=== PATIENT | female | born 1995 | race Caucasian/White ===

== ENCOUNTER 2024-04-30 15:01 | Outpatient (CLI) | payer BC ==
[2024-04-30 15:44] VITALS: BP 135/85; PULSE 82; RESP 16; TEMP 98.2
--- NOTE | 2024-06-07 20:24 | P.MSEPDOC ---
Presenting Problems - Arrival Data Date of Arrival on Unit: 04/30/24 Time of Arrival on Unit: 15:01 Mode of Transport: Ambulatory - Complaint OB-Reason for Admission/Chief Complaint: Decreased Movement Medical History - Information : 1 Para: 0 Term: 0 : 0 Abortions: Spontaneous or Elective: 0 Number of Living Children: 0 - Gestational Age Gestational Age by DAINA (wks/days): 25 Weeks and 0 Days Review of Systems - Review of Systems Constitutional: No problems Breast: No problems ENT: No problems Cardiovascular: No problems Respiratory: No problems Gastrointestinal: No problems Genitourinary: No problems Musculoskeletal: No problems Neurological: No problems Skin: No problems Vital Signs - Temperature Temperature: 98.2 F Temperature Source: Temporal Artery Scan - Pulse Right Sitting Pulse Rate: 82 Pulse Assessment Method: Automatic Cuff - Respirations Respiratory Rate: 16 Oxygen Delivery Method: Room Air - Blood Pressure Right Arm Blood Pressure: 135/85 Blood Pressure Mean: 101 Blood Pressure Source: Automatic Cuff Medical Screen Scoring - Assessment - Baby A Baseline FHR: 140 Heart Rate - NICHD Category: Category I (Normal) NST: Reactive Physician Notification - Physician Notified Physician Notified Date: 04/30/24 Physician Notified Time: 15:27 Physician: Sharda Flynn New Order Received: Yes (d/c home) Maternal Triage Index - Urgent/Priority 2 Urgent Priority 2: Yes Provider Notified: Sharda Flynn Provider Notified Time: 15:27 Criteria Met for Priority 2: reassuring fht for gestation Disposition - Disposition OB Disposition: Discharge to home Discharge Date: 04/30/24 Discharge Time: 15:36 I agree with the RN Medical Screening Exam: Yes Case reviewed; plan agreed upon as documented in EMR&OBIX.: Yes Diagnosis: DECREASED MOVEMENTS, SECOND TRIMESTER, FETUS 1
== END 2024-04-30 15:36 | disposition home or self-care (01) ==
LOC: FBPOP 15:01
PROVIDERS: ATTEND Obstetrics & Gynecology Obstetrics
DX: O36.8121 Decreased fetal movements, second trimester, fetus 1 (principal); Z91.041 Radiographic dye allergy status; Z91.048 Other nonmedicinal substance allergy status; Z3A.25 25 weeks gestation of pregnancy
CPT/HCPCS: 99213

== ENCOUNTER 2024-05-08 17:10 | Emergency (ER) | payer BC, OTHER ==
[2024-05-08 17:18] VITALS: TEMP 98.5
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
[2024-05-08 17:52] LABS: Basophils # (A) 0.1 k/uL (0-0.2); Basophils % (A) 1 %; Eosinophils # (A) 0.1 k/uL (0-0.7); Eosinophils % (A) 1 %; HCT 38.2 % (34.0-46.0); HGB 12.1 gm/dL (11.4-16.0); Lymphocytes # (A) 2.5 k/uL (1.0-4.8); Lymphocytes % (A) 25 %; MCH 27.8 pg (25.0-35.0); MCHC 31.7 g/dL (31.0-37.0); MCV 87.8 fL (80.0-100.0); Mean Platelet Volume 8.2; Monocytes # (A) 0.4 k/uL (0-1.0); Monocytes % (A) 4 %; Neutrophils # (A) 6.8 k/uL (1.3-7.7); Neutrophils % (A) 68 %; Platelet Count 243 k/uL (150-450); RBC 4.35 m/uL (3.80-5.40); RDW 13.8 % (11.5-15.5)
[2024-05-08 18:03] LABS: ALT 11 U/L (4-34); AST 21 U/L (14-36); African American GFR (CKD) >90 (>60 ml/min/1.73 sqM); Albumin 3.5 g/dL (3.5-5.0); Alkaline Phosphatase 70 U/L (38-126); Anion Gap 9 mmol/L; Blood Urea Nitrogen 9 mg/dL (7-17); Calcium 8.9 mg/dL (8.4-10.2); Carbon Dioxide 21 mmol/L (22-30); Chloride 104 mmol/L (98-107); Glucose 76 mg/dL (74-99); Lipase 52 U/L (23-300); Non-African American GFR(CKD) >90 (>60 ml/min/1.73 sqM); Sodium 134 mmol/L (137-145); Total Bilirubin 0.3 mg/dL (0.2-1.3); Total Protein 6.1 g/dL (6.3-8.2)
[2024-05-08 18:07] LABS: Appearance,Urine Clear (Clear); Bacteria,Urine Few /hpf; Bilirubin,Urine Negative (Negative); Blood,Urine Negative (Negative); Color,Urine Light Yellow; Glucose,Urine (UA) Negative (Negative); Ketones,Urine Negative (Negative); Leukocyte Esterase,Urine Negative (Negative); Mucus,Urine Rare /hpf; Nitrite,Urine Negative (Negative); Protein,Urine 1+ (Negative); RBC,Urine 2 /hpf (0-5); Specific Gravity,Urine 1.018 (1.001-1.035); Squamous Epithelial Cell,Urine <1 /hpf (0-4); Urobilinogen,Urine <2.0 mg/dL (<2.0); WBC,Urine 3 /hpf (0-5)
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
[2024-05-08] MEDS: ACETAMINOPHEN TAB 500 MG TAB PO STA (19:42)
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
[2024-05-08 20:48] VITALS: BP 132/84; PULSE 91; RESP 18
== END 2024-05-08 20:47 | disposition other institution (70) ==
LOC: EC 17:10
DX: O26.93 Pregnancy related conditions, unspecified, third trimester (principal); V49.40XA Driver injured in collision with unspecified motor vehicles in traffic accident, initial encounter; Y92.410 Unspecified street and highway as the place of occurrence of the external cause; Z3A.26 26 weeks gestation of pregnancy
CPT/HCPCS: 36415; 76815; 80053; 81001; 83690; 85025; 99285

== ENCOUNTER 2024-05-08 20:52 | Outpatient (CLI) | payer BC ==
[2024-05-09 01:02] VITALS: BP 130/75; PULSE 80; RESP 16; TEMP 98.3
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
== END 2024-05-09 01:06 ==
LOC: FBPOP 20:52
PROVIDERS: ATTEND Obstetrics & Gynecology
DX: O26.92 Pregnancy related conditions, unspecified, second trimester (principal); Z3A.26 26 weeks gestation of pregnancy; Z91.048 Other nonmedicinal substance allergy status
CPT/HCPCS: 86850; 86900; 86901; 99213

== ENCOUNTER 2024-07-30 20:33 | Outpatient (CLI) | payer OTHER ==
[2024-07-30 21:53] VITALS: BP 138/76
--- NOTE | 2024-08-14 20:35 | P.MSEPDOC ---
Presenting Problems - Arrival Data Date of Arrival on Unit: 07/30/24 Time of Arrival on Unit: 20:33 Mode of Transport: Ambulatory - Complaint OB-Reason for Admission/Chief Complaint: Decreased Movement Medical History - Information : 1 Para: 0 Term: 0 : 0 Abortions: Spontaneous or Elective: 0 Number of Living Children: 0 - Gestational Age Gestational Age by DAINA (wks/days): 38 Weeks and 0 Days Review of Systems - Review of Systems Constitutional: No problems Breast: No problems ENT: No problems Cardiovascular: No problems Respiratory: No problems Gastrointestinal: No problems Genitourinary: No problems Musculoskeletal: No problems Neurological: No problems Skin: No problems Vital Signs - Blood Pressure Left Arm Blood Pressure: 138/76 Blood Pressure Mean: 96 Blood Pressure Source: Automatic Cuff Medical Screen Scoring - Assessment - Baby A Baseline FHR: 130 Heart Rate - NICHD Category: Category I (Normal) NST: Reactive Physician Notification - Physician Notified Physician Notified Date: 07/30/24 Physician Notified Time: 21:12 Physician: Sharda Flynn New Order Received: Yes - Notification Comment Comment: Spoke with Dr. Flynn. Pt of hers, o38 weeks 0 days. Presents with decreased FM for the past feew hours. Feelimg movement in triage now, NST reactive with cat 1 tones, no cx or pain. Initial BPs were 150s/70s-80s. Pressure is now 138/76, no symptoms. Order recieved to d/c home Maternal Triage Index - Maternal Triage Index Presenting for scheduled procedure w/no complaint: No - Stat/Priority 1 Stat Priority 1: No - Urgent/Priority 2 Urgent Priority 2: Yes Provider Notified: Sharda Flynn Provider Notified Time: 21:12 Criteria Met for Priority 2: Decreased movement Disposition - Disposition OB Disposition: Discharge to home Discharge Date: 07/30/24 Discharge Time: 21:15 I agree with the RN Medical Screening Exam: Yes Case reviewed; plan agreed upon as documented in EMR&OBIX.: Yes Diagnosis: RELATED CONDITIONS, UNSPECIFIED, THIRD TRIMESTER
== END 2024-07-30 21:15 | disposition home or self-care (01) ==
LOC: FBPOP 20:33
PROVIDERS: ATTEND Obstetrics & Gynecology Obstetrics
DX: O26.893 Other specified pregnancy related conditions, third trimester (principal); Z91.048 Other nonmedicinal substance allergy status; Z91.018 Allergy to other foods; Z3A.38 38 weeks gestation of pregnancy
CPT/HCPCS: 59025; 99213

== ENCOUNTER 2024-08-12 17:48 | Inpatient (IN) | payer OTHER ==
[2024-08-12 18:43] LABS: Basophils # (A) 0.04 10*3/uL (0.00-0.10); Basophils % (A) 0.3 %; Eosinophils # (A) 0.12 10*3/uL (0.04-0.35); HCT 36.9 % (37.2-46.3); HGB 12.8 g/dL (12.0-15.0); Lymphocytes # (A) 2.59 10*3/uL (0.90-5.00); Lymphocytes % (A) 21.9 %; MCHC 34.7 g/dL (32.0-37.0); MCV 86.6 fL (80.0-97.0); Mean Platelet Volume 11.9 fL (9.5-12.2); Monocytes % (A) 4.2 %; Neutrophils # (A) 8.56 10*3/uL (1.80-7.70); Neutrophils % (A) 72.3 %; Platelet Count 246 10*3/uL (140-440); RBC 4.26 10*6/uL (4.10-5.20); RDW 12.3 % (11.5-14.5); WBC 11.85 10*3/uL (4.50-10.00)
[2024-08-12 18:54] LABS: Uric Acid 4.2 mg/dL (3.7-7.4)
[2024-08-12 18:55] LABS: Creatinine,Urine Random 43.4 mg/dL; Protein/Creatinine Ratio,Urine 0.438
[2024-08-12 19:04] LABS: Appearance,Urine Clear (Clear); Bacteria,Urine Occasional /hpf; Bilirubin,Urine Negative (Negative); Blood,Urine Small (Negative); Color,Urine Colorless; Glucose,Urine (UA) Negative (Negative); Ketones,Urine Negative (Negative); Leukocyte Esterase,Urine Negative (Negative); Nitrite,Urine Negative (Negative); PH, Urine 6.5 (5.0-8.0); Protein,Urine Negative (Negative); RBC,Urine 1 /hpf (0-5); Specific Gravity,Urine 1.003 (1.001-1.035); Squamous Epithelial Cell,Urine 1 /hpf (0-4); Urobilinogen,Urine <2.0 mg/dL (<2.0); WBC,Urine 1 /hpf (0-5)
[2024-08-12] MEDS ORDERED: OXYTOCIN 10 UNIT/ML 1 ML VIAL IM PRN (19:30)
[2024-08-12] MEDS ORDERED: TRANEXAMIC 1,000 MG/100ML-NACL 1,000 MG in EMPTY BAG 1 BAG IV PRN (19:30)
[2024-08-12] MEDS ORDERED: TERBUTALINE 1 MG/ML VIAL SQ PRN (19:30)
[2024-08-12] MEDS ORDERED: miSOPROStoL 200 MCG TAB PO PRN (19:30)
[2024-08-12] MEDS ORDERED: METHYLERGONOVINE 0.2 MG/ML 1 ML AMP IM PRN (19:30)
[2024-08-12] MEDS ORDERED: CARBOPROST TROMETHAMINE 250 MCG/ML 1 ML AMP IM PRN (19:30)
[2024-08-12] MEDS ORDERED: miSOPROStoL 200 MCG TAB RECTAL PRN (19:30)
[2024-08-12] MEDS: DINOPROSTONE 10 MG INSERT.ER VAGINAL ONE (19:41)
[2024-08-12] MEDS ORDERED: LABETALOL 200 MG TAB PO STA (19:50)
[2024-08-12 20:16] LABS: African American GFR (CKD) >90 (>60 ml/min/1.73 sqM); Non-African American GFR(CKD) >90 (>60 ml/min/1.73 sqM)
[2024-08-12] MEDS: NALBUPHINE 10 MG/ML (10 ML MDV) IV PRN (21:08)
[2024-08-12] MEDS: LACTATED RINGERS 1,000 ML IV SCH (21:09)
[2024-08-12] MEDS: AMPICILLIN 2,000 MG in SODIUM CHLORIDE 0.9% 100 ML IVPB ONE (22:32)
[2024-08-13] MEDS ORDERED: ROPIVACAINE 5 MG/ML 30 ML VIAL ONE (01:29)
[2024-08-13] MEDS ORDERED: fentaNYL (PF) 50 MCG/ML 5 ML AMP ONE (01:29)
[2024-08-13] MEDS ORDERED: SODIUM CHLORIDE 0.9% 250 ML BAG ONE (01:29)
[2024-08-13] MEDS: AMPICILLIN 1,000 MG in SODIUM CHLORIDE 0.9% 50 ML IVPB SCH (02:37)
[2024-08-13] MEDS: OXYTOCIN 30 UNITS/500 ML NS 30 UNIT in SALINE 1 500ML.BAG IV SCH (04:48)
[2024-08-13] MEDS ORDERED: diphenhydrAMINE 50 MG CAP PO PRN (05:00)
[2024-08-13] MEDS ORDERED: HYDROCORTISONE 2.5% RECTAL CREAM 30 GM TUBE RECTAL PRN (05:00)
[2024-08-13] MEDS ORDERED: LANOLIN CREAM 1 GM TUBE TOPICAL PRN (05:00)
[2024-08-13] MEDS ORDERED: diphenhydrAMINE 25 MG CAP PO PRN (05:00)
[2024-08-13] MEDS ORDERED: SIMETHICONE 80 MG CHEWABLE PO PRN (05:00)
[2024-08-13] MEDS ORDERED: diphenhydrAMINE 50 MG/ML 1 ML VIAL IVP PRN ×2 (05:00)
[2024-08-13] MEDS ORDERED: ZOLPIDEM 5 MG TAB PO PRN (05:00)
--- NOTE | 2024-08-13 05:04 | P.PROBDLV ---
Vaginal Delivery Note - . Vaginal Delivery Note: Date of service 08/13/2024 Findings: Viable male infant delivered at 446, weight of 6 pounds 6.3 ounces 28-year-old 1 para 0 that presented to labor and delivery last evening with complaints of contractions that began around 1600. Patient was noted to have elevated blood pressures in OB triage therefore was admitted for Cervidil induction of labor. Blood pressures have been good through the labor process. Cervidil was removed through the night as patient was faraz and making cervical change. Patient progressed and requested an epidural. Epidural was placed with some difficulty by the anesthesia department. Patient got minimal relief from the epidural and made quick progress toward 8 cm. Patient soon had spontaneous rupture of membranes clear in nature, and progressed to complete dilation. Once completely dilated patient began pushing and through category 1 heart tones had a normal spontaneous vaginal delivery of a viable male at 446, weight of 6 pounds 6.3 ounces, Apgars of 8 and 9 at 1 and 5 minutes respectively. Spontaneous cry was noted at . After 2-minute delay the umbilical cord was doubly clamped and cut. Placenta was delivered spontaneously intact with a three-vessel cord being noted. Terminal meconium was appreciated at the time of delivery. On inspection of the patient's vaginal vault a second-degree midline laceration was appreciated. This was injected with lidocaine and repaired in the usual fashion with 3-0 Rapide. After closure hemostasis was appreciated. Uterus was noted to be firm and below the umbilicus. All counts were known to be correct x 2 at the end of the delivery. Patient and infant tolerated delivery well and are resting comfortably.
--- NOTE | 2024-08-13 05:05 | P.HPOB ---
History of Present Illness H&P Date: 08/12/24 Chief Complaint: IUP at 39 and 6/7 weeks, gestational hypertension 28-year-old 1 para 0 at 39-6/7 weeks that presents to labor and delivery with complaints of contractions beginning around 1600. Patient states contractions began irregular in nature at first and became more consistent. Patient then presented to labor and delivery. Patient denies vaginal bleeding or loss of fluid. On initial blood pressure in OB triage elevated blood pressure 160 over 90s was appreciated. Most recent 150s over 74. Patient denies signs or symptoms of preeclampsia. Patient has been receiving routine care which has been essentially uncomplicated. On blood work this patient has a blood type of O+, rubella status nonimmune, hepatitis B surface engine negative, HIV negative, RPR nonreactive, grew beta strep culture positive Review of Systems Constitutional: Denies chills, Denies fatigue, Denies fever Ears, nose, mouth and throat: Denies headache Cardiovascular: Reports leg edema Respiratory: Denies dyspnea Gastrointestinal: Denies constipation, Denies diarrhea, Denies nausea, Denies vomiting Genitourinary: Reports Past Medical History History of Any Multi-Drug Resistant Organisms: None Reported Smoking Status: Never smoker Medications and Allergies Home Medications Medication Instructions Recorded Confirmed Type Aspirin 81 mg PO DAILY 04/30/24 08/12/24 History Vit No.179/Iron/Folic 1 tab PO DAILY 04/30/24 08/12/24 History [ Tablet] Allergies Allergy/AdvReac Type Severity Reaction Status Date / Time adhesive Allergy Rash/Hives Verified 08/12/24 17:57 red dye Allergy Nausea & Verified 08/12/24 17:57 Vomiting Exam Osteopathic Statement: *. No significant issues noted on an osteopathic structural exam other than those noted in the History and Physical/Consult. Intake and Output 08/12/24 08/12/24 08/12/24 06:59 14:59 22:59 Other: Weight 144.242 kg Targeted physical exam is performed this date in general this is a well- nourished well-developed female in no acute distress, breathing is nonlabored, abdomen is noted to be obese and gravid, on cervical exam she is fingertip/70/-2 station vertex presentation. heart tones are noted to be category 1 and she is faraz irregularly. Results Result Diagrams: 08/12/24 18:31 08/12/24 18:31 Abnormal Lab Results - Last 24 Hours (Table) 08/12/24 08/12/24 Range/Units 18:26 18:31 WBC 11.85 H (4.50-10.00) 10*3/uL Hct 36.9 L (37.2-46.3) % Neutrophils # 8.56 H (1.80-7.70) 10*3/uL Urine Blood Small H (Negative) Urine Bacteria Occasional H (None) /hpf Assessment and Plan (1) Term Current Visit: Yes Status: Acute Code(s): Z34.90 - ENCNTR FOR SUPRVSN OF NORMAL , UNSP, UNSP TRIMESTER SNOMED Code(s): 96188694 (2) Gestational hypertension Current Visit: Yes Status: Acute Code(s): O13.9 - GESTATIONAL HTN W/O SIGNIFICANT PROTEINURIA, UNSP TRIMESTER SNOMED Code(s): 42593512 Plan: Admit to labor and delivery for Cervidil induction of labor clear liquids as tolerated Nubain/nitrous/epidural should she progress in labor. Plan to remove Cervidil around 5:30 AM and begin Pitocin augmentation of labor. Will continue to monitor blood pressures and treat with labetalol 100 mg for blood pressures 160/100
[2024-08-13] MEDS: LIDOCAINE 0.5% (PF) 5 MG/ML (50 ML SDV) SQ PRN (05:29)
[2024-08-13] MEDS: IBUPROFEN 800 MG TAB PO SCH (05:29)
[2024-08-13] MEDS: BENZOCAINE/MENTHOL SPRAY 1 GM/SPRAY AEROSOL TOPICAL PRN (05:32)
[2024-08-13] MEDS: SENNOSIDES-DOCUSATE SODIUM 1 EACH TAB PO SCH (08:45)
[2024-08-13] MEDS: PRENATAL VIT-IRON-FOLIC ACID 1 EACH TABLET PO SCH (13:11)
[2024-08-13] MEDS: ACETAMINOPHEN TAB 500 MG TAB PO SCH (13:12)
[2024-08-13] MEDS: MEASLES-MUMPS-RUBELLA VACC/PF 0.5 ML VIAL SQ ONE (21:45)
[2024-08-14 08:27] VITALS: PULSE 82; RESP 16; TEMP 97.6
--- NOTE | 2024-08-14 12:08 | P.DS ---
Providers Date of admission: 08/12/24 19:23 Expected date of discharge: 08/14/24 Attending physician: Sharda Flynn Primary care physician: Stated None - Discharge Diagnosis(es) (1) Term Current Visit: Yes Status: Acute (2) Gestational hypertension Current Visit: Yes Status: Acute (3) Status post normal vaginal delivery Current Visit: Yes Status: Acute (4) Obstetrical laceration, second degree Current Visit: Yes Status: Acute Hospital Course: This is a 20 1 now para 1 that presented to labor and delivery on 08/12 with complaints of contractions that began around 1600. Patient was noted to have elevated blood pressures in OB triage therefore was admitted for Cervidil induction of labor. Patient was noted to be 39-6/7 weeks at the time of induction. Patient had a Cervidil placed and began faraz, Cervidil was removed through the 90s patient was noted to be faraz and making cervical change. Patient did make good progress and requesting epidural for analgesia. Epidural was placed with some difficulty by the anesthesia department. Patient got minimal relief from the epidural and quickly progressed to complete dilation. Patient underwent spontaneous rupture of membranes just prior to 8 cm. Patient once completely dilated began pushing and had a normal spontaneous vaginal delivery of a viable male infant at 446 on 08/13 weight of 6 pounds 6.3 ounces. Patient did sustain a second-degree midline laceration during delivery. This was injected with lidocaine and repaired in the usual fashion with 3-0 Rapide. Patient's course has been uneventful. Is day #1 she is ambulating voiding but difficulty. She is tolerating regular diet without nausea or vomiting. States her pain is well-controlled. She denies concerns. She would like discharge home at 24 hours. Patient Condition at Discharge: Good Plan - Discharge Summary New Discharge Prescriptions: No Action Vit No.179/Iron/Folic [ Tablet] 1 tab PO DAILY Aspirin 81 mg PO DAILY Discharge Medication List Aspirin 81 mg PO DAILY 04/30/24 [History] Vit No.179/Iron/Folic [ Tablet] 1 tab PO DAILY 04/30/24 [History] Follow up Appointment(s)/Referral(s): Sharda Flynn DO [Doctor of Osteopathic Medicine] - 09/24/24 2:45 pm Patient Instructions/Handouts: Vaginal Delivery (DC), Vaginal Delivery (GEN) Activity/Diet/Wound Care/Special Instructions: No tub baths or intercourse until 6 weeks . [id number] ibuprofen 600 mg or 3 tablets every 6 hours as needed for pain. Routine check at 6 weeks. Should she have any concerns prior to this appointment she is urged to call the office to be seen prior. Discharge Disposition: HOME SELF-CARE
[2024-08-14 15:51] VITALS: BP 144/82
--- NOTE | 2024-08-14 20:53 | P.MSEPDOC ---
Presenting Problems - Arrival Data Date of Arrival on Unit: 08/12/24 Time of Arrival on Unit: 19:15 Mode of Transport: Ambulatory - Complaint OB-Reason for Admission/Chief Complaint: Possible Onset of Labor Comment: pt presents to triage with c/o contx for the past hour Medical History - Information : 1 Para: 0 Term: 0 : 0 Abortions: Spontaneous or Elective: 0 Number of Living Children: 0 - Gestational Age Gestational Age by DAINA (wks/days): 40 Weeks and 0 Days Review of Systems - Review of Systems Constitutional: No problems Breast: No problems ENT: No problems Cardiovascular: No problems Respiratory: No problems Gastrointestinal: No problems Genitourinary: No problems Musculoskeletal: No problems Neurological: No problems Skin: No problems Vital Signs - Temperature Temperature: 97.6 F Temperature Source: Oral - Pulse Right Brachial Pulse Rate: 82 Pulse Assessment Method: Pulse Oximetry Left Brachial Pulse Rate: 71 Pulse Assessment Method: Automatic Cuff - Respirations Respiratory Rate: 16 Oxygen Delivery Method: Room Air O2 Sat by Pulse Oximetry: 95 - Blood Pressure Left Arm Blood Pressure: 144/82 Blood Pressure Mean: 102 Blood Pressure Source: Automatic Cuff Medical Screen Scoring - Cervical Exam Membranes: Intact - Uterine Contractions Frequency From (mins): 4 Frequency To (mins): 4 Duration From (seconds): 50 Duration To (seconds): 70 - Assessment - Baby A Baseline FHR: 130 Heart Rate - NICHD Category: Category I (Normal) NST: Reactive Physician Notification - Physician Notified Physician Notified Date: 08/12/24 Physician Notified Time: 19:15 Physician: Sharda Flynn New Order Received: Yes - Notification Comment Comment: plan of care and orders discussed with Dr. Flynn and Lacey Vallejo RN on previous shift. 1914- Dr. Flynn phoned in for status. Labs and blood pressures reviewed. Orders received to admit patient for cervidil IOL. Maternal Triage Index - Stat/Priority 1 Stat Priority 1: No - Urgent/Priority 2 Urgent Priority 2: No - Prompt/Priority 3 Prompt Priority 3: No - Non-Urgent/Priority 4 Non-Urgent Priority 4: Yes Criteria Met for Priority 4: 39 6/7 contractions Disposition - Disposition OB Disposition: Admit Discharge Date: 08/14/24 Discharge Time: 15:30 I agree with the RN Medical Screening Exam: Yes Case reviewed; plan agreed upon as documented in EMR&OBIX.: Yes Diagnosis: RELATED CONDITIONS, UNSPECIFIED, THIRD TRIMESTER
== END 2024-08-14 15:30 | disposition home or self-care (01) | DRG 807 ==
LOC: FBPOP 17:48 → 4FBP 19:23
PROVIDERS: ADMIT Obstetrics & Gynecology Obstetrics; ATTEND Obstetrics & Gynecology Obstetrics
PROC: 3E0P7VZ Introduction of Hormone into Female Reproductive, Via Natural or Artificial Opening (ICD-10-PCS; 2024-08-12)
PROC: 10E0XZZ Delivery of Products of Conception, External Approach (ICD-10-PCS; principal; 2024-08-13)
PROC: 0KQM0ZZ Repair Perineum Muscle, Open Approach (ICD-10-PCS; principal; 2024-08-13)
PROC: 3E0134Z Introduction of Serum, Toxoid and Vaccine into Subcutaneous Tissue, Percutaneous Approach (ICD-10-PCS; 2024-08-13)
DX: O13.4 Gestational [pregnancy-induced] hypertension without significant proteinuria, complicating childbirth (principal); O70.1 Second degree perineal laceration during delivery; O99.824 Streptococcus B carrier state complicating childbirth; O77.0 Labor and delivery complicated by meconium in amniotic fluid; Z79.82 Long term (current) use of aspirin; Z23 Encounter for immunization; Z3A.39 39 weeks gestation of pregnancy; Z37.0 Single live birth
CPT/HCPCS: 36415; 59025; 81001; 82565; 82570; 83615; 84156; 84450; 84460; 84520; 84550; 85025; 86850; 86900; 86901; 90707; 99215